=== PATIENT | female | born 1945 | race Caucasian/White ===

== ENCOUNTER → 2016-06-22 | Outpatient (CLI) | payer MEDICARE ==
[~2016-06-22] MED LIST: AMLO5TAB2 PO; ATOR20TA59 PO; BENA20TA3 PO; BISO5TAB2 PO; CLOB15OI3 TOP; MELO-267 PO; OXYC1TAB8 PO
--- NOTE | 2016-06-22 08:28 | DI ---
Indication: ITS.REASON: N13.5 URETERAL OBSTRUCTION ON RIGHT SIDE PROCEDURE: US RENAL: Encounter: Initial Comparison: None Technique: Grayscale and color Doppler sonographic imaging of both kidneys was performed. FINDINGS: Both kidneys are present with normal cortical thickness and echogenicity. No evidence for collecting system dilatation, contour deforming mass, nephrolithiasis, or abnormal perinephric fluid collection. The right kidney measures 10.3 cm in length, and the left kidney measures 10.3 cm in length. Multiple liver cysts are noted measuring up to 6 cm in size. IMPRESSION: No hydronephrosis. .
== END ==
LOC: IMA 07:42
PROVIDERS: ATTEND Obstetrics & Gynecology Gynecology
DX: N13.5 Crossing vessel and stricture of ureter without hydronephrosis (principal)